=== PATIENT | female | born 1995 ===

== ENCOUNTER 2023-11-27 08:02 | Outpatient (CLI) | payer SELFPAY ==
--- NOTE | 2023-11-27 08:00 | RT.EKG_ITS ---
APPROVED REPORT Exam: Resting ECG Reason for Exam: HIGH RISK MEDICATION USE Patient Location: O HR:70 bpm ECG Measurements Heart Rate 70 AXIS HI 146 P 2 QRSd 93 QRS 45 QT 420 T 24 QTc 454 Conclusion Sinus rhythm...normal P axis, V-rate 50- 99 Normal Electrocardiogram
== END 2023-11-27 08:03 | disposition home or self-care (01) ==
PROVIDERS: Visit Provider Family Medicine
DX: Z79.899 Other long term (current) drug therapy (principal)
CPT/HCPCS: 93005; 93010